=== PATIENT | female | born 1990 | race Caucasian/White ===

== ENCOUNTER 2023-09-11 09:45 | Outpatient (CLI) | payer OTHER, SELFPAY ==
--- NOTE | ~2023-09-11 | XR_ITS ---
Left foot Technique: AP, oblique, and lateral views were obtained. Clinical History: Plantar fascia fibromatosis Findings: No acute fracture or dislocation is seen. Osseous alignment is anatomic. Joint spaces are p reserved without erosive or degenerative change. Soft tissues are unremarkable. Impression: Unremarkable left foot radiographs. Reviewed, dictated and finalized at location . Impression: Unremarkable left foot radiographs.
== END 2023-09-11 09:46 ==
LOC: MICIMG 09:49
PROVIDERS: PCP Nurse Practitioner Family; Visit Provider Nurse Practitioner Family
DX: M72.2 Plantar fascial fibromatosis (principal); E88.810 Metabolic syndrome; E16.1 Other hypoglycemia; Z71.3 Dietary counseling and surveillance
CPT/HCPCS: 73630